=== PATIENT | male | born 1965 | race Hispanic/Latino ===

== ENCOUNTER 2020-05-11 11:22 | Emergency (ER) | payer SELFPAY ==
[2020-05-11 11:57] LABS: APPEARANCE,URINE TURBID (CLEAR); BILIRUBIN,URINE MODERATE (NEGATIVE); COLOR,URINE YELLOW (YELLOW); GLUCOSE, URINE (UA) 100 mg/dL (NEGATIVE); KETONES,URINE 5 mg/dL (NEGATIVE); LEUKOCYTE ESTERASE ,URINE TRACE (NEGATIVE); NITRATE,URINE POSITIVE (NEGATIVE); OCCULT BLOOD,URINE LARGE (NEGATIVE); PH,URINE 5.5 (5.0-8.0); PROTEIN,URINE 100 mg/dL (NEGATIVE); UROBILINOGEN,URINE >=8.0 mg/dL (0.2-1.0)
[2020-05-11 12:42] LABS: RBC,URINE 0-1 /HPF (0-1)
[2020-05-11 12:43] LABS: BACTERIA,URINE Many /HPF (None Seen); MUCUS,URINE Moderate LPF (None Seen); SQUAMOUS EPITHELIAL CELL,UR Rare /HPF (0-2); WBC,URINE 26-50 /HPF (0-1)
[2020-05-11] MEDS ORDERED: CEFTRIAXONE SODIUM 1 GM ONE (12:44)
[2020-05-11] MEDS ORDERED: LIDOCAINE HCL-MPF 1% 2ML VIAL ONE (12:44)
== END 2020-05-11 14:28 | disposition home or self-care (01) ==
LOC: EDH 11:22
DX: N39.0 Urinary tract infection, site not specified (principal); N45.3 Epididymo-orchitis
CPT/HCPCS: 76870; 81001; 87088; 96372; 99284; J0696; J3490; 87077; 87186

== ENCOUNTER 2020-12-17 07:45 | Emergency (ER) | payer OTHER ==
[2020-12-17] MEDS ORDERED: ONDANSETRON HCL 4 MG/2 ML VIAL ONE (08:04)
[2020-12-17] MEDS ORDERED: HYDROMORPHONE 1MG AMP (1MG/ML) ONE ×2 (08:05→09:54)
[2020-12-17 08:06] LABS: APPEARANCE,URINE Turbid (CLEAR); BILIRUBIN,URINE Small (NEGATIVE); COLOR,URINE Red (YELLOW); GLUCOSE, URINE (UA) Negative (NEGATIVE); KETONES,URINE Negative (NEGATIVE); LEUKOCYTE ESTERASE ,URINE Moderate (NEGATIVE); NITRATE,URINE Positive (NEGATIVE); OCCULT BLOOD,URINE Moderate (NEGATIVE); PROTEIN,URINE POS 2+ mg/dL (NEGATIVE); UROBILINOGEN,URINE 0.2 mg/dL (0.2-1.0)
[2020-12-17 08:24] LABS: BASOPHILS % (AUTO) 0.5 % (0.0-5.0); EOSINOPHILS % (AUTO) 0.3 % (0.0-8.0); HEMATOCRIT 42.8 % (42-54); LYMPHOCYTES % (AUTO) 24.8 % (21.0-51.0); MEAN CORPUSCULAR HEMOGLOBIN 28.9 pg (27.0-33.0); MEAN CORPUSCULAR VOLUME 90.3 fL (79-99); NEUTROPHILS % (AUTO) 66.7 % (40.0-77.0); PLATELET COUNT (AUTO) 402 K/uL (130-400); RED BLOOD CELL COUNT(AUTO) 4.74 MIL/uL (4.50-6.20); RED CELL DISTRIBUTION WIDTH 15.4 % (11.0-15.5); WHITE BLOOD COUNT (AUTO) 11.1 K/uL (4.8-10.8)
[2020-12-17 08:34] LABS: BACTERIA,URINE Moderate /HPF (None Seen); MUCUS,URINE Rare LPF (None Seen); RBC,URINE TNTC /HPF (0-1); SQUAMOUS EPITHELIAL CELL,UR Rare /HPF (0-2)
[2020-12-17 08:35] LABS: URIC ACID CRYSTALS,URINE Few /LPF (None Seen)
[2020-12-17 08:37] LABS: CREATININE 1.3 mg/dL (0.5-1.5); POTASSIUM 4.4 mmol/L (3.5-5.1)
[2020-12-17 08:41] LABS: ALBUMIN 3.7 g/dL (3.5-5.0); BILIRUBIN,TOTAL 0.9 mg/dL (0.2-1.0); TOTAL PROTEIN, SERUM 7.1 g/dL (6.0-8.3)
[2020-12-17] MEDS ORDERED: 0.9% SODIUM CHLORIDE 1000 ML IV BAG IV ONE (10:09)
[2020-12-17] MEDS ORDERED: KETOROLAC 60 MG VIAL (30MG/ML) ONE (12:09)
== END 2020-12-17 12:26 | disposition home or self-care (01) ==
LOC: EDH 07:45
DX: N20.1 Calculus of ureter (principal)
CPT/HCPCS: 36415; 74176; 80053; 81001; 85025; 87088; 96361; 96372; 96374; 96375; 96376; 99285; J1170 ×2; J1885; J2405; J7030

== ENCOUNTER 2023-06-01 03:35 | Emergency (ER) | payer BC, OTHER ==
[~2023-06-01] VITALS: Ht 167.6 cm; Wt 82.1 kg
[2023-06-01] MEDS ORDERED: MORPHINE 4 MG SYG ONE (03:51)
[2023-06-01] MEDS ORDERED: ONDANSETRON 4MG INJ ONE (03:51)
[2023-06-01 03:53] LABS: BASOPHILS # (AUTO) 0.06 K/uL (0.00-0.20); BASOPHILS % (AUTO) 0.5 % (0.0-5.0); EOSINOPHILS # (AUTO) 0.14 K/uL (0.00-0.70); EOSINOPHILS % (AUTO) 1.3 % (0.0-8.0); HEMATOCRIT 38.5 % (42-54); IMMATURE GRANULOCYTE ABSOLUTE 0.05 K/uL (0-1); LYMPHOCYTES # (AUTO) 2.1 K/uL (1.0-4.8); LYMPHOCYTES % (AUTO) 19.4 % (21.0-51.0); MEAN CORPUSCULAR HEMOGLOBIN 28.7 pg (27.0-33.0); MEAN CORPUSCULAR HGB CONC 32.5 g/dL (32.0-36.0); MEAN CORPUSCULAR VOLUME 88.5 fL (79-99); MONOCYTES % (AUTO) 8.7 % (3.0-13.0); NEUTROPHILS # (AUTO) 7.7 K/uL (1.8-7.7); NEUTROPHILS % (AUTO) 69.6 % (40.0-77.0); PLATELET COUNT (AUTO) 381 K/uL (130-400); RED BLOOD CELL COUNT(AUTO) 4.35 MIL/uL (4.50-6.20); RED CELL DISTRIBUTION WIDTH 14.6 % (11.0-15.5)
[2023-06-01] MEDS ORDERED: MORPHINE 4 MG SYG IVP ONE (04:00)
[2023-06-01] MEDS ORDERED: 0.9%NACL 1000ML 1,000 ML IV ONE (04:00)
[2023-06-01] MEDS ORDERED: ONDANSETRON 4MG INJ IVP ONE (04:00)
[2023-06-01 04:02] LABS: CREATININE 1.8 mg/dL (0.5-1.5); POTASSIUM 3.5 mmol/L (3.5-5.1)
[2023-06-01 04:07] LABS: ALBUMIN 3.3 g/dL (3.5-5.0); BILIRUBIN,TOTAL 0.6 mg/dL (0.2-1.0); TOTAL PROTEIN, SERUM 6.5 g/dL (6.0-8.3)
[2023-06-01] MEDS ORDERED: TAMS-1 PO (04:39)
[2023-06-01] MEDS ORDERED: METO-296 PO (04:39)
[2023-06-01] MEDS ORDERED: ACET-2079 PO (04:39)
[2023-06-01 05:24] VITALS: BP 127/67; PULSE 66; RESP 16; O2SAT 97
== END 2023-06-01 05:26 | disposition home or self-care (01) ==
LOC: EDH 03:35
DX: N20.0 Calculus of kidney (principal)
CPT/HCPCS: 99284; 96374; 96375; 84484; 80053; 83690; 85025; 36415; 93005; J2405; J2270

== ENCOUNTER 2024-03-22 13:49 | Emergency (ER) | payer BC ==
[~2024-03-22] VITALS: Ht 157.5 cm; Wt 84.4 kg
[~2024-03-22 13:49] MED LIST: ACET-2079 PO; METO-296 PO; TAMS-1 PO
[2024-03-22 13:50] VITALS: TEMP 99.2
[2024-03-22 15:52] LABS: BASOPHILS # (AUTO) 0.04 K/uL (0.00-0.20); BASOPHILS % (AUTO) 0.3 % (0.0-5.0); EOSINOPHILS # (AUTO) 0.04 K/uL (0.00-0.70); EOSINOPHILS % (AUTO) 0.3 % (0.0-8.0); HEMATOCRIT 40.9 % (42-54); IMMATURE GRANULOCYTE ABSOLUTE 0.13 K/uL (0-1); LYMPHOCYTES # (AUTO) 0.9 K/uL (1.0-4.8); MEAN CORPUSCULAR HEMOGLOBIN 29.8 pg (27.0-33.0); MEAN CORPUSCULAR HGB CONC 32.5 g/dL (32.0-36.0); MEAN CORPUSCULAR VOLUME 91.7 fL (79-99); MONOCYTES # (AUTO) 0.6 K/uL (0.1-1.0); MONOCYTES % (AUTO) 3.7 % (3.0-13.0); NEUTROPHILS # (AUTO) 13.3 K/uL (1.8-7.7); NEUTROPHILS % (AUTO) 88.8 % (40.0-77.0); PLATELET COUNT (AUTO) 248 K/uL (130-400); RED BLOOD CELL COUNT(AUTO) 4.46 MIL/uL (4.50-6.20); RED CELL DISTRIBUTION WIDTH 15.6 % (11.0-15.5)
[2024-03-22 15:59] LABS: CREATININE 1.4 mg/dL (0.5-1.3); POTASSIUM 4.1 mmol/L (3.5-5.1)
[2024-03-22 16:32] LABS: BAND NEUTROPHILS % (MANUAL) 16 % (0-2); EOSINOPHILS % (MANUAL) 1 % (1-6); LYMPHOCYTES % (MANUAL) 11 % (22-44); MAN.DIFF COMMENT-IMPRESSION MANUAL DIFFERENTIAL; MONOCYTES % (MANUAL) 2 % (2-9); PLATELET MORPHOLOGY COMMENT ADEQUATE; SEGMENTED NEUTROPHILS % 70 % (40-70); TOTAL CELLS COUNTED 100; WBC MORPHOLOGY CONSISTENT W/DIFF
[2024-03-22] MEDS: ketOROlac 15MG/ML VIAL (15MG/ML) IV ONE (17:19)
[2024-03-22] MEDS: levoFLOXacin 500 MG/D5W 100 ML 100 ML IV STA (17:20)
[2024-03-22] MEDS: LACTATED RINGERS 1000ML 1,000 ML IV ONE (17:20)
[2024-03-22 17:30] LABS: ADD UA MICROSCOPIC YES; APPEARANCE,URINE HAZY (CLEAR); BILIRUBIN,URINE NEGATIVE (NEGATIVE); COLOR,URINE YELLOW (YELLOW); GLUCOSE, URINE (UA) NEGATIVE (NEGATIVE); KETONES,URINE NEGATIVE (NEGATIVE); LEUKOCYTE ESTERASE ,URINE 500 Leu/uL (NEGATIVE); NITRATE,URINE NEGATIVE (NEGATIVE); OCCULT BLOOD,URINE SMALL (NEGATIVE); PH,URINE 5.5 (5.0-8.0); PROTEIN,URINE 20 mg/dL (NEGATIVE); UROBILINOGEN,URINE 0.2 mg/dL (0.2-1.0)
[2024-03-22 17:34] LABS: BACTERIA,URINE FEW /HPF (None Seen); MUCUS,URINE RARE LPF (None Seen); WBC CLUMP FEW /HPF (0-1); WBC,URINE TNTC /HPF (0-1)
[2024-03-22] MEDS ORDERED: LEVO750T68 PO (17:36)
[2024-03-22 18:37] VITALS: BP 113/72; PULSE 79; RESP 17; O2SAT 100
== END 2024-03-22 18:40 | disposition home or self-care (01) ==
LOC: EDH 13:49
DX: N39.0 Urinary tract infection, site not specified (principal); Z79.899 Other long term (current) drug therapy; Z98.890 Other specified postprocedural states
CPT/HCPCS: 99284; 74176; 96365; 96375; 80048; 85025; 87086 ×2; 87186; 81001; 36415; J7120; J1956; J1885

== ENCOUNTER 2024-03-24 12:33 | Emergency (ER) | payer BC ==
[~2024-03-24] VITALS: Ht 170.2 cm; Wt 83.5 kg
[~2024-03-24 12:33] MED LIST changes: +LEVO750T68 PO
[2024-03-24 13:16] VITALS: BP 142/84; PULSE 96; RESP 18; TEMP 98.5
[2024-03-24] MEDS ORDERED: LEVO-70 PO (13:40)
[2024-03-24] MEDS ORDERED: TAMS-1 PO (13:40)
[2024-03-24 13:57] LABS: BASOPHILS # (AUTO) 0.01 K/uL (0.00-0.20); BASOPHILS % (AUTO) 0.1 % (0.0-5.0); EOSINOPHILS # (AUTO) 0.08 K/uL (0.00-0.70); EOSINOPHILS % (AUTO) 0.6 % (0.0-8.0); HEMATOCRIT 38.4 % (42-54); IMMATURE GRANULOCYTE ABSOLUTE 0.09 K/uL (0-1); LYMPHOCYTES # (AUTO) 1.1 K/uL (1.0-4.8); LYMPHOCYTES % (AUTO) 8.3 % (21.0-51.0); MEAN CORPUSCULAR HEMOGLOBIN 29.3 pg (27.0-33.0); MEAN CORPUSCULAR HGB CONC 32.6 g/dL (32.0-36.0); MEAN CORPUSCULAR VOLUME 90.1 fL (79-99); MONOCYTES # (AUTO) 0.5 K/uL (0.1-1.0); MONOCYTES % (AUTO) 3.9 % (3.0-13.0); NEUTROPHILS % (AUTO) 86.4 % (40.0-77.0); PLATELET COUNT (AUTO) 189 K/uL (130-400); RED BLOOD CELL COUNT(AUTO) 4.26 MIL/uL (4.50-6.20); RED CELL DISTRIBUTION WIDTH 15.7 % (11.0-15.5); WHITE BLOOD COUNT (AUTO) 12.7 K/uL (4.8-10.8)
[2024-03-24] MEDS: tamSULOsin HCL 0.4 MG CAP.ER.24H PO ONE (14:03)
[2024-03-24] MEDS: levoFLOXacin 500 MG TABLET PO ONE (14:03)
[2024-03-24 14:09] LABS: CREATININE 1.5 mg/dL (0.5-1.3); POTASSIUM 3.4 mmol/L (3.5-5.1)
[2024-03-24 14:25] LABS: APPEARANCE,URINE CLOUDY (CLEAR); BILIRUBIN,URINE NEGATIVE (NEGATIVE); COLOR,URINE LIGHT-YELLOW (YELLOW); GLUCOSE, URINE (UA) NEGATIVE (NEGATIVE); KETONES,URINE NEGATIVE (NEGATIVE); LEUKOCYTE ESTERASE ,URINE 25 Leu/uL (NEGATIVE); NITRATE,URINE NEGATIVE (NEGATIVE); OCCULT BLOOD,URINE LARGE (NEGATIVE); PH,URINE 5.5 (5.0-8.0); PROTEIN,URINE 30 mg/dL (NEGATIVE); UROBILINOGEN,URINE 0.2 mg/dL (0.2-1.0)
[2024-03-24 14:52] LABS: ADD UA MICROSCOPIC YES
[2024-03-24 14:56] LABS: BACTERIA,URINE RARE /HPF (None Seen); MUCUS,URINE RARE LPF (None Seen); RBC,URINE TNTC /HPF (0-1); SQUAMOUS EPITHELIAL CELL,UR RARE /HPF (0-2)
== END 2024-03-24 14:32 | disposition home or self-care (01) ==
LOC: EDH 12:33
DX: N40.1 Benign prostatic hyperplasia with lower urinary tract symptoms (principal); R33.8 Other retention of urine; Z79.899 Other long term (current) drug therapy; Z87.442 Personal history of urinary calculi
CPT/HCPCS: 36415; 51702; 80048; 81001; 85025